=== PATIENT | female | born 1980 | race Caucasian/White ===

== ENCOUNTER 2017-05-20 06:22 | Emergency (ER) | payer OTHER ==
[~2017-05-20] VITALS: Ht 162.6 cm; Wt 79.3 kg
[~2017-05-20 06:22] MED LIST: CEFD300C PO; TESS200C PO; XYZAL
[2017-05-20 06:28] VITALS: BP 163/96; PULSE 74; RESP 18; TEMP 97.5; O2SAT 100
[2017-05-20] MEDS ORDERED: SODIUM CHLOR 0.9% 1000 ML INJ 1,000 ML IV ONE (06:52)
[2017-05-20] MEDS ORDERED: BIOTCAP PO (06:52)
[2017-05-20] MEDS ORDERED: VITATAB25 PO (06:52)
[2017-05-20] MEDS ORDERED: SYNT112T PO (06:52)
[2017-05-20] MEDS ORDERED: KETOROLAC TROMETHAMINE 30 MG/ML (IVP) VIAL IV PUSH ONE (07:00)
[2017-05-20] MEDS ORDERED: HYDROmorphone HCL PF 1 MG/ML VIAL IV PUSH ONE (07:00)
[2017-05-20] MEDS ORDERED: SODIUM CHLORIDE 0.9% FLUSH 10 ML FLUSH IVF PRN (07:00)
--- NOTE | 2017-05-20 07:00 | PD ---
HPI Chief Complaint: Abdominal Pain Time Seen by Provider: 06:47 Travel History International Travel<30 days: No Contact w/Intl Traveler<30days: No Traveled to known affect area: No History of Present Illness HPI The patient is a 37-year-old female that complains of a sharp, colicky, stabbing pain only on the left side and radiating from the left flank to the left UVJ area beginning around 5:30 AM this morning. She has never had a kidney stone before. The pain started after she started voiding around 0530. She denies any nausea, vomiting, fever or diarrhea. She has never had this pain before. The patient is allergic to Vioxx but can take ibuprofen. PFSH Past Medical History Blood Disorders: No Diminished Hearing: No ?: Unknown LMP: 05/01/17 Social History Alcohol Use: Yes (RARE) Tobacco Use: No Substance Use: No Allergies-Medications (Allergen,Severity, Reaction): Coded Allergies: Sulfa (Sulfonamide Antibiotics) (Verified Allergy, Severe, 05/20/17) codeine (Verified Allergy, Severe, 05/20/17) cromolyn (Verified Allergy, Severe, 05/20/17) penicillin G (Verified Allergy, Severe, 05/20/17) rofecoxib (Verified Allergy, Severe, 05/20/17) Reported Meds & Prescriptions Reported Meds & Active Scripts Active Reported Vitamin D-[address] (Cholecalciferol) 1,000 Unit Tab 1,000 Units PO DAILY Biotin 5 Mg Cap 5 Mg PO Synthroid (Levothyroxine Sodium) 112 Mcg Tab 112 Mcg PO DAILY Review of Systems Except as stated in HPI: all other systems reviewed are Neg Physical Exam Narrative GENERAL: Alert, oriented 3 in moderate apparent distress with her left flank pain. Her vital signs show blood pressure 163/96 but are otherwise normal. SKIN: Focused skin assessment warm/dry. HEAD: Atraumatic. Normocephalic. EYES: Pupils equal and round. No scleral icterus. No injection or drainage. ENT: No nasal bleeding or discharge. Mucous membranes pink and moist. NECK: Trachea midline. No JVD. CARDIOVASCULAR: Regular rate and rhythm. No murmur appreciated. RESPIRATORY: No accessory muscle use. Clear to auscultation. Breath sounds equal bilaterally. GASTROINTESTINAL: Abdomen soft, , nondistended. Hepatic and splenic margins not palpable. MUSCULOSKELETAL: No obvious deformities. No clubbing. No cyanosis. No edema. NEUROLOGICAL: Awake and alert. No obvious cranial nerve deficits. Motor grossly within normal limits. Normal speech. PSYCHIATRIC: Appropriate mood and affect; insight and judgment normal. Data Data Last Documented VS Vital Signs Date Time Temp Pulse Resp B/P (MAP) Pulse Ox O2 Delivery O2 Flow Rate FiO2 05/20/17 06:28 97.5 74 18 163/96 (118) 100 Orders Orders Complete Blood Count With Diff (05/20/17 06:52) Basic Metabolic Panel (Bmp) (05/20/17 06:52) Urinalysis - C+S If Indicated (05/20/17 06:52) Ed Urine Pregnancytest Poc (05/20/17 06:52) Ct Abd/Pel W/O Iv Contrast (05/20/17 06:52) Ecg Monitoring (05/20/17 06:52) Iv Access Insert/Monitor (05/20/17 06:52) Ketorolac Inj (Toradol Inj) (05/20/17 07:00) Sodium Chloride 0.9% Flush (Ns Flush) (05/20/17 07:00) Sodium Chlor 0.9% 1000 Ml Inj (Ns 1000 M (05/20/17 06:52) Hydromorphone Pf Inj (Dilaudid Pf Inj) (05/20/17 07:00) MDM Medical Decision Making Medical Screen Exam Complete: Yes Emergency Medical Condition: Yes Medical Record Reviewed: Yes Differential Diagnosis Urinary stone, diverticulitis, colitis, urinary tract infection, ruptured ovarian cyst, ovarian torsion-highly unlikely Narrative Course It is now 0714 and the patient is transferred to Tez Gupta MD May 20, 2017 07:00
[2017-05-20 07:24] LABS: BLOOD, URINE LARGE (NEG); GLUCOSE,URINE NEG (NEG); KETONE, URINE NEG (NEG); NITRITE,URINE NEG (NEG); PH, URINE 5.5 (5.0-8.5)
[2017-05-20 07:24] LABS: AUTOMATED NEUTROPHIL # 3.6 TH/MM3 (1.8-7.7); BASOPHIL # 0.1 TH/MM3 (0-0.2); EOSINOPHIL # 0.2 TH/MM3 (0-0.4); EOSINOPHIL % 2.9 % (0.0-4.0); HEMATOCRIT 39.7 % (35.0-46.0); HEMO FLAGS DIFF FINAL; LYMPH % 24.8 % (9.0-44.0); LYMPHOCYTE # 1.4 TH/MM3 (1.0-4.8); MEAN CELL VOLUME 87.7 FL (80.0-100.0); MEAN CORPUSCULAR HEMOGLOBIN 29.7 PG (27.0-34.0); MEAN CORPUSCULAR HGB CONC 33.9 % (32.0-36.0); MONO % 8.6 % (0.0-8.0); NEUT % 62.7 % (16.0-70.0); PLATELET COUNT 277 TH/MM3 (150-450); RED BLOOD COUNT 4.52 MIL/MM3 (4.00-5.30); RED CELL DISTRIBUTION WIDTH 12.4 % (11.6-17.2); WHITE BLOOD COUNT 5.8 TH/MM3 (4.0-11.0)
[2017-05-20 07:31] LABS: METHOD OF COLLECTION CLEAN CATCH; SQUAMOUS EPITHELIAL CELL URINE > 8 /hpf (0-5); URINE COLOR YELLOW (YELLW/STRAW)
[2017-05-20 07:32] LABS: BACTERIA, URINE MANY /hpf; COMMENT (UR) CULTURE INDICATED; CULTURE IF INDICATED CULTURE INDICATED
[2017-05-20 07:34] LABS: POTASSIUM 3.7 MEQ/L (3.5-5.1)
[2017-05-20 07:37] LABS: BICARBONATE 24.6 MEQ/L (21.0-32.0)
--- NOTE | 2017-05-20 07:38 | RADRPT ---
EXAM DATE/TIME: 05/20/2017 07:21 [facility] COMPARISON: No previous studies available for comparison. INDICATIONS : Left flank pain. ORAL CONTRAST: No oral contrast ingested. RADIATION DOSE: 18.20 CTDIvol (mGy) MEDICAL HISTORY : None SURGICAL HISTORY : None. ENCOUNTER: Initial ACUITY: 1 day PAIN SCALE: 10/10 LOCATION: Left flank TECHNIQUE: Volumetric scanning of the abdomen and pelvis was performed. Using automated exposure control and ad justment of the mA and/or kV according to patient size, radiation dose was kept as low as reasonably achievable to obtain optimal diagnostic quality images. DICOM format image data is available electro nically for review and comparison. FINDINGS: Lung bases are clear. Osseous structures are intact. Visualized portions of liver are normal. Gallbla dder, spleen, pancreas, adrenal glands are unremarkable. Small fracture and an umbilical hernia. Urin maira bladder, uterus and adnexa are unremarkable. No evidence of bowel obstruction. The appendix is no rmal. There is no adenopathy. At the midpole of the right kidney a nonobstructing calculus is present measuring 3.1 mm on 34. At the left upper pole kidney a nonobstructing calculus is present measuring 4.5 mm on image 33. There is mild left-sided hydronephrosis identified. There is a calculus within t he left proximal ureter measuring 4.3 mm on image 63 of series 2. This is noted to result in slight u pstream dilatation of the ureter. The calculus is present at the L3 level. The CONCLUSION: 1. Bilateral nonobstructing renal calculi. 2. Mild left-sided hydronephrosis and proximal hydroureter secondary to a left proximal ureteral calc ulus as described above. Kev Payne MD on May 20, 2017 at 7:34 Board Certified Radiologist. This report was verified electronically.
[2017-05-20] MEDS ORDERED: IBUP-1129 PO (08:05)
[2017-05-20] MEDS ORDERED: HYDR-3533 PO (08:05)
[2017-05-20] MEDS ORDERED: ZOFR4TAB3 SL (08:05)
--- NOTE | 2017-05-20 08:05 | PD ---
Physical Exam Date Seen by Provider: May 20, 2017 Time Seen by Provider: 07:00 Narrative Patient signed out to me by Dr. Muniz at 7 AM, please see his notes for further details. Here with left flank pain, workup initiated in the ER by Dr. Muniz. Laboratory Tests Test 05/20/17 07:15 05/20/17 07:19 Monocytes (%) (Auto) 8.6 % (0.0-8.0) Calcium Level 8.4 MG/DL (8.5-10.1) Urine Occult Blood LARGE (NEG) Urine RBC 50-99 /hpf (0-3) Urine Squamous Epithelial Cells > 8 /hpf (0-5) Urine Bacteria MANY /hpf (NONE) Last 24 hours Impressions Abdomen/Pelvis CT 05/20/17651 Signed Impressions: Service Date/Time: Thursday, May 20, 2017 07:21 - CONCLUSION: 1. Bilateral nonobstructing renal calculi. 2. Mild left-sided hydronephrosis and proximal hydroureter secondary to a left proximal ureteral calculus as described above. Kev Payne MD Lab work shows significant hematuria. Metabolic panel is essentially unremarkable. CAT scan does show a 4 mm stone in the left ureter with some underlying hydronephrosis. Patient has been given medications for pain and on reevaluation at 8 AM is appearing fairly comfortable. Vital signs are stable in the ER. At this point, my plan would be to release the patient with follow- up to urology. Strain urine. Pain medication for relief. Return for any worsening in symptoms as needed. The plan has been discussed with her and she states understanding. Data Data Last Documented VS Vital Signs Date Time Temp Pulse Resp B/P (MAP) Pulse Ox O2 Delivery O2 Flow Rate FiO2 05/20/17 06:28 97.5 74 18 163/96 (118) 100 Orders Orders Complete Blood Count With Diff (05/20/17 06:52) Basic Metabolic Panel (Bmp) (05/20/17 06:52) Urinalysis - C+S If Indicated (05/20/17 06:52) Ed Urine Pregnancytest Poc (05/20/17 06:52) Ct Abd/Pel W/O Iv Contrast (05/20/17 06:52) Ecg Monitoring (05/20/17 06:52) Iv Access Insert/Monitor (05/20/17 06:52) Ketorolac Inj (Toradol Inj) (05/20/17 07:00) Sodium Chloride 0.9% Flush (Ns Flush) (05/20/17 07:00) Sodium Chlor 0.9% 1000 Ml Inj (Ns 1000 M (05/20/17 06:52) Hydromorphone Pf Inj (Dilaudid Pf Inj) (05/20/17 07:00) Urine Culture (05/20/17 07:19) Labs Laboratory Tests Test 05/20/17 07:15 05/20/17 07:19 White Blood Count 5.8 TH/MM3 Red Blood Count 4.52 MIL/MM3 Hemoglobin 13.4 GM/DL Hematocrit 39.7 % Mean Corpuscular Volume 87.7 FL Mean Corpuscular Hemoglobin 29.7 PG Mean Corpuscular Hemoglobin Concent 33.9 % Red Cell Distribution Width 12.4 % Platelet Count 277 TH/MM3 Mean Platelet Volume 7.5 FL Neutrophils (%) (Auto) 62.7 % Lymphocytes (%) (Auto) 24.8 % Monocytes (%) (Auto) 8.6 % Eosinophils (%) (Auto) 2.9 % Basophils (%) (Auto) 1.0 % Neutrophils # (Auto) 3.6 TH/MM3 Lymphocytes # (Auto) 1.4 TH/MM3 Monocytes # (Auto) 0.5 TH/MM3 Eosinophils # (Auto) 0.2 TH/MM3 Basophils # (Auto) 0.1 TH/MM3 CBC Comment DIFF FINAL Differential Comment Blood Urea Nitrogen 10 MG/DL Creatinine 0.66 MG/DL Random Glucose 104 MG/DL Calcium Level 8.4 MG/DL Sodium Level 137 MEQ/L Potassium Level 3.7 MEQ/L Chloride Level 105 MEQ/L Carbon Dioxide Level 24.6 MEQ/L Anion Gap 7 MEQ/L Estimat Glomerular Filtration Rate 101 ML/MIN Urine Collection Type CLEAN CATCH Urine Color YELLOW Urine Turbidity SLIGHT Urine pH 5.5 Urine Specific [place] 1.020 Urine Protein NEG mg/dL Urine Glucose (UA) NEG mg/dL Urine Ketones NEG mg/dL Urine Occult Blood LARGE Urine Nitrite NEG Urine Bilirubin NEG Urine Leukocyte Esterase NEG Urine RBC 50-99 /hpf Urine WBC 3-5 /hpf Urine Squamous Epithelial Cells > 8 /hpf Urine Bacteria MANY /hpf Microscopic Urinalysis Comment CULTURE INDICATED Urine Collection Time 07:19 [facility] Medical Record Reviewed: Yes Supervised Visit with PASCALE: No Diagnosis Primary Impression: Renal colic on left side Med/Other Pt SpecificInfo: Prescription(s) given Scripts Hydrocodone-Acetaminophen (Lortab) 5-325 Mg Tab 1-2 TAB PO Q6H Y for PAIN, #12 TAB 0 Refills Prov: Miguel Scott MD 05/20/17 Ondansetron Odt (Zofran Odt) 4 Mg Tab 4 MG SL Q6HR Y for Nausea/Vomiting, #7 TAB 0 Refills Prov: Miguel Scott MD 05/20/17 Ibuprofen (Motrin Ib) 200 Mg Tablet 600 MG PO QID Y for PAIN SCALE 1 TO 10, #20 Prov: Miguel Scott MD 05/20/17 Disposition: 01 DISCHARGE HOME Condition: Stable Miguel Scott MD May 20, 2017 08:05
== END 2017-05-20 08:46 | disposition home or self-care (01) ==
LOC: PHED 06:22
DX: N13.2 Hydronephrosis with renal and ureteral calculous obstruction (principal)
CPT/HCPCS: 74176; 80048; 81001; 84703; 85025; 87086; 96361; 96374; 96375; 99285; J1170; J1885; J7030